=== PATIENT | male | born 2000 | race Caucasian/White ===

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

== ENCOUNTER 2020-06-29 16:13 | Emergency (ER) | payer OTHER ==
[2020-06-29 18:44] LABS: HEMOGLOBIN 16.1 gm/dl (14.0-17.5); RED BLOOD COUNT 5.44 M/UL (4.20-5.50); WHITE BLOOD COUNT 13.2 K/UL (4.5-11.0)
[2020-06-29 19:08] LABS: BUN/CREATININE RATIO 16 (0-10)
[2020-06-29] MEDS ORDERED: BENTYL 10MG CAP10 MG PO (22:13)
[2020-06-29] MEDS ORDERED: ZOFRAN4 MG PO (22:13)
[2020-06-29] MEDS ORDERED: PROTONIX40 MG PO (22:13)
== END 2020-06-29 22:51 | disposition home or self-care (01) ==
LOC: ER1 16:13
PROVIDERS: Physician Assistant Medical
DX: R10.13 Epigastric pain (principal); R11.2 Nausea with vomiting, unspecified; R19.7 Diarrhea, unspecified; Z88.0 Allergy status to penicillin
CPT/HCPCS: 80053; 81001; 82150; 82272; 83690; 85025; 85652; 86140; 96374; 96375; 99284; C9113; J2405; J7030; Q9967